=== PATIENT | male | born 1980 | race Caucasian/White ===

== ENCOUNTER 2018-10-18 08:36 | Emergency (ER) | payer BC ==
--- NOTE | 2018-10-18 08:45 | EDM.PDOC ---
ED HPI GENERAL MEDICAL PROBLEM - General Chief Complaint: ENT Problem Stated Complaint: EAR INFECTION? Time Seen by Provider: 10/18/18 08:44 Source of Information: Reports: Patient, RN, RN Notes Reviewed History Limitations: Reports: No Limitations - History of Present Illness INITIAL COMMENTS - FREE TEXT/NARRATIVE: Pt presents to ER from home by POV with c/o left ear pain that became worse last night. Pt reports about 2 weeks duration of congestion with postnasal drip and sore throat which has been improving. He denies fever, chills, cough, or any other symptoms. Denies drainage from the ear. Onset: Gradual - Related Data Allergies Allergy/AdvReac Type Severity Reaction Status Date / Time amoxicillin Allergy Cannot Verified 10/18/18 08:49 Remember Penicillins Allergy Cannot Verified 10/18/18 08:49 Remember Home Meds: Home Meds . [No Known Home Meds] 10/18/18 [History] Past Medical History - Past Health History Medical/Surgical History: Denies Medical/Surgical History Social & Family History - Family History Family Medical History: Noncontributory - Living Situation & Occupation Living situation: Reports: with Family Occupation: Employed ED ROS ENT - Review of Systems Review Of Systems: ROS reveals no pertinent complaints other than HPI. ED EXAM, ENT - Physical Exam Exam: See Below Exam Limited By: No Limitations General Appearance: Alert, WD/WN, No Apparent Distress Eye Exam: Bilateral Eye: Normal Inspection Ears: Normal External Exam, Hearing Grossly Normal, TM Bulging (Left), TM Dullness (B/L), TM Erythema (Left). No: Mastoid Tenderness, Canal Discharge, TM Perforation Nose: No Blood, Nasal Discharge (mild, thick) Mouth/Throat: Normal Gums, Normal Lips, Normal Teeth, Other (Postnasal drip). No: Pharyngeal Erythema Head: Atraumatic, Normocephalic Neck: Normal Inspection, Supple, Non-Tender, Full Range of Motion. No: Lymphadenopathy (L), Lymphadenopathy (R) Respiratory/Chest: No Respiratory Distress, Lungs Clear, Normal Breath Sounds, No Accessory Muscle Use, Chest Non-Tender Cardiovascular: Regular Rate, Rhythm Neurological: Alert, Oriented Psychiatric: Normal Mood Skin: Warm, Dry, Intact, Normal Color, No Rash Course - Vital Signs Last Recorded V/S: Last Vital Signs Temp 36.8 C 10/18/18 08:49 Pulse 75 10/18/18 08:49 Resp 18 10/18/18 08:49 BP 124/63 10/18/18 08:49 Pulse Ox 99 10/18/18 08:49 - Orders/Labs/Meds Meds: Medications Discontinued Medications Generic Name Dose Route Start Last Admin Trade Name Venuq PRN Reason Stop Dose Admin Doxycycline Hyclate 100 mg 10/18/18 08:50 Vibramycin PO 10/18/18 08:51 ONETIME ONE Lidocaine HCl 15 ml 10/18/18 08:48 Xylocaine 2% Viscous .XX 10/18/18 08:49 ONETIME ONE Departure - Departure Time of Disposition: 08:53 Disposition: Home, Self-Care 01 Condition: Good Clinical Impression: Viral upper respiratory infection Otitis media Qualifiers: Otitis media type: suppurative Chronicity: acute Laterality: left Recurrence: non-recurrent Spontaneous tympanic membrane rupture: without spontaneous rupture Qualified Code(s): H66.002 - Acute suppurative otitis media without spontaneous rupture of ear drum, left ear - Discharge Information *PRESCRIPTION DRUG MONITORING PROGRAM REVIEWED*: Not Applicable *COPY OF PRESCRIPTION DRUG MONITORING REPORT IN PATIENT MEGAN: Not Applicable Instructions: Otitis Media, Adult, [id number], Upper Respiratory Infection, Adult, [id number] Forms: ED Department Discharge Additional Instructions: Rx: Doxycycline 100mg Rx: Loratadine-D 24HR [place] gargles several times a day until sore throat resolves. Follow up in clinic if not improved in 1 week.
[2018-10-18] MEDS ORDERED: Lidocaine 2% Viscous Solution 15 ML Cup ONE (08:48)
[2018-10-18] MEDS ORDERED: Doxycycline 100 MG Cap PO ONE (08:50)
== END 2018-10-18 09:09 | disposition home or self-care (01) ==
LOC: DL.ED 08:36
DX: H66.002 Acute suppurative otitis media without spontaneous rupture of ear drum, left ear (principal); J06.9 Acute upper respiratory infection, unspecified; Z88.1 Allergy status to other antibiotic agents; Z88.0 Allergy status to penicillin
CPT/HCPCS: 99282; A9270

== ENCOUNTER 2021-03-22 14:46 | Emergency (ER) | payer BC ==
--- NOTE | 2021-03-22 15:16 | EDM.PDOC ---
ED HPI GENERAL MEDICAL PROBLEM - General Chief Complaint: Abdominal Pain Stated Complaint: STOMACH PAIN Time Seen by Provider: 03/22/21 15:16 Source of Information: Reports: Patient, RN, RN Notes Reviewed History Limitations: Reports: No Limitations - History of Present Illness INITIAL COMMENTS - FREE TEXT/NARRATIVE: Willa is a 48 y/o male who presents to the ED via personal vehicle with complaints of abdominal pain, diarrhea, and one bout of emesis. The patient reports his symptoms began five days ago and have progressively worsened in that time. He characterizes the pain as a sharp stabbing in the mid-abdomen at the level of the umbilicus. He has taken one dose of Pepto Bismol with no alleviation in symptoms. He denies recent illness, fever, shaking chills, dyspepsia, melena, hematochezia, dysuria, or hematuria. He denies tobacco, alcohol, or recreational drug use. Abdominal Pain Score (Numeric/FACES): 2 - Related Data Allergies Allergy/AdvReac Type Severity Reaction Status Date / Time amoxicillin Allergy Cannot Verified 03/22/21 15:10 Remember Penicillins Allergy Cannot Verified 03/22/21 15:10 Remember Home Meds: Home Meds . [No Known Home Meds] 10/18/18 [History] Past Medical History - Past Health History Medical/Surgical History: Denies Medical/Surgical History Social & Family History - Family History Family Medical History: No Pertinent Family History - Caffeine Use Caffeine Use: Reports: None - Living Situation & Occupation Living situation: Reports: with Family Occupation: Employed ED ROS GENERAL - Review of Systems Review Of Systems: Comprehensive ROS is negative, except as noted in HPI. ED EXAM, GI/ABD - Physical Exam Exam: See Below Exam Limited By: No Limitations General Appearance: Alert, No Apparent Distress Eyes: Bilateral: Normal Appearance, EOMI Ears: Normal External Exam, Hearing Grossly Normal Nose: Normal Inspection, Normal Mucosa, No Blood Throat/Mouth: Normal Inspection, Normal Oropharynx, Normal Voice, No Airway Compromise Head: Atraumatic, Normocephalic Neck: Normal Inspection, Supple, Non-Tender, Full Range of Motion Respiratory/Chest: No Respiratory Distress, Lungs Clear, Normal Breath Sounds, No Accessory Muscle Use, Chest Non-Tender Cardiovascular: Normal Peripheral Pulses, Regular Rate, Rhythm, No Gallop, No Murmur, No Rub GI/Abdominal Exam: Soft, No Distention, No Abnormal Bruit, No Mass, Pelvis Stable, Tender (To palpation of lower abdomen, bilaterally), Abnormal Bowel Sounds (Hyperactive bowel sounds) (Male) Exam: Deferred Rectal (Males) Exam: Deferred Back Exam: Normal Inspection, Full Range of Motion. No: CVA Tenderness (L), CVA Tenderness (R) Extremities: Normal Inspection, Normal Range of Motion, Non-Tender, No Pedal Edema, Normal Capillary Refill Neurological: Alert, Oriented, CN II-XII Intact, Normal Cognition, Normal Gait, No Motor/Sensory Deficits Psychiatric: Normal Affect, Normal Mood Skin Exam: Warm, Dry, Intact, Normal Color, No Rash. No: Cyanosis, Jaundice, Mottled, Pallor Lymphatic: No Adenopathy Course - Vital Signs Last Recorded V/S: Last Vital Signs Temp 98.5 F 03/22/21 15:10 Pulse 84 03/22/21 15:10 Resp 18 03/22/21 15:10 BP 125/79 03/22/21 15:10 Pulse Ox 96 03/22/21 15:10 - Orders/Labs/Meds Labs: Laboratory Tests 03/22/21 03/22/21 03/22/21 Range/Units 15:49 15:49 15:49 WBC 10.9 H (5.0-10.0) 10^3/uL RBC 5.41 (4.6-6.2) 10^6/uL Hgb 16.2 (14.0-18.0) g/dL Hct 46.2 (40.0-54.0) % MCV 85.4 (80-100) fL MCH 29.9 (27.0-34.0) pg MCHC 35.1 H (33.0-35.0) g/dL Plt Count 266 (150-450) 10^3/uL Neut % (Auto) 72.0 (42.2-75.2) % Lymph % (Auto) 19.7 L (20.5-50.1) % [place] % (Auto) 7.0 (2-8) % Eos % (Auto) 1.2 (1.0-3.0) % Baso % (Auto) 0.1 (0.0-1.0) % Sodium 143 (136-145) mmol/L Potassium 3.7 (3.5-5.1) mmol/L Chloride 105 (98-107) mmol/L Carbon Dioxide 29 (21-32) mmol/L Anion Gap 12.7 (7-13) mEq/L BUN 13 (7-18) mg/dL Creatinine 0.95 (0.70-1.30) mg/dL Est Cr Clr Drug Dosing 115.72 mL/min Estimated GFR (MDRD) > 60 BUN/Creatinine Ratio 13.7 (No establ ref range) Glucose 94 (70-99) mg/dL Lactic Acid 0.7 (0.4-2.0) mmol/L Calcium 8.6 (8.5-10.1) mg/dL Magnesium 2.3 (1.8-2.4) mg/dL Total Bilirubin 0.6 (0.2-1.0) mg/dL AST 21 (15-37) U/L ALT 44 (16-63) U/L Alkaline Phosphatase 57 (46-116) U/L C-Reactive Protein < 0.2 (0.0-0.9) mg/dL Total Protein 7.6 (6.4-8.2) g/dL Albumin 4.4 (3.4-5.0) g/dL Globulin 3.2 Albumin/Globulin Ratio 1.4 Amylase 48 (25-115) U/L Lipase 95 (73-393) U/L Urine Color (YELLOW) Urine Appearance (CLEAR) Urine pH (5.0-9.0) Ur Specific [place] (1.005-1.030) Urine Protein (NEGATIVE) Urine Glucose (UA) (NEGATIVE) Urine Ketones (NEGATIVE) Urine Occult Blood (NEGATIVE) Urine Nitrite (NEGATIVE) Urine Bilirubin (NEGATIVE) Urine Urobilinogen (0.2-1.0) mg/dL Ur Leukocyte Esterase (NEGATIVE) Urine Opiates Screen (NEGATIVE) Ur Oxycodone Screen (NEGATIVE) Urine Methadone Screen (NEGATIVE) Ur Barbiturates Screen (NEGATIVE) U Tricyclic Antidepress (NEGATIVE) Ur Phencyclidine Scrn (NEGATIVE) Ur Amphetamine Screen (NEGATIVE) U Methamphetamines Scrn (NEGATIVE) Urine MDMA Screen (NEGATIVE) U Benzodiazepines Scrn (NEGATIVE) Urine Cocaine Screen (NEGATIVE) U Marijuana (THC) Screen (NEGATIVE) Ethyl Alcohol < 3 (0) mg/dL SARS-CoV-2 RNA (RYAN) (NEGATIVE) 03/22/21 03/22/21 03/22/21 Range/Units 15:50 15:50 15:53 WBC (5.0-10.0) 10^3/uL RBC (4.6-6.2) 10^6/uL Hgb (14.0-18.0) g/dL Hct (40.0-54.0) % MCV (80-100) fL MCH (27.0-34.0) pg MCHC (33.0-35.0) g/dL Plt Count (150-450) 10^3/uL Neut % (Auto) (42.2-75.2) % Lymph % (Auto) (20.5-50.1) % [place] % (Auto) (2-8) % Eos % (Auto) (1.0-3.0) % Baso % (Auto) (0.0-1.0) % Sodium (136-145) mmol/L Potassium (3.5-5.1) mmol/L Chloride (98-107) mmol/L Carbon Dioxide (21-32) mmol/L Anion Gap (7-13) mEq/L BUN (7-18) mg/dL Creatinine (0.70-1.30) mg/dL Est Cr Clr Drug Dosing mL/min Estimated GFR (MDRD) BUN/Creatinine Ratio (No establ ref range) Glucose (70-99) mg/dL Lactic Acid (0.4-2.0) mmol/L Calcium (8.5-10.1) mg/dL Magnesium (1.8-2.4) mg/dL Total Bilirubin (0.2-1.0) mg/dL AST (15-37) U/L ALT (16-63) U/L Alkaline Phosphatase (46-116) U/L C-Reactive Protein (0.0-0.9) mg/dL Total Protein (6.4-8.2) g/dL Albumin (3.4-5.0) g/dL Globulin Albumin/Globulin Ratio Amylase (25-115) U/L Lipase (73-393) U/L Urine Color Yellow (YELLOW) Urine Appearance Slightly cloudy (CLEAR) Urine pH 6.0 (5.0-9.0) Ur Specific [place] >= 1.030 (1.005-1.030) Urine Protein Negative (NEGATIVE) Urine Glucose (UA) Negative (NEGATIVE) Urine Ketones Negative (NEGATIVE) Urine Occult Blood Negative (NEGATIVE) Urine Nitrite Negative (NEGATIVE) Urine Bilirubin Negative (NEGATIVE) Urine Urobilinogen 0.2 (0.2-1.0) mg/dL Ur Leukocyte Esterase Negative (NEGATIVE) Urine Opiates Screen Negative (NEGATIVE) Ur Oxycodone Screen Negative (NEGATIVE) Urine Methadone Screen Negative (NEGATIVE) Ur Barbiturates Screen Negative (NEGATIVE) U Tricyclic Antidepress Negative (NEGATIVE) Ur Phencyclidine Scrn Negative (NEGATIVE) Ur Amphetamine Screen Negative (NEGATIVE) U Methamphetamines Scrn Negative (NEGATIVE) Urine MDMA Screen Negative (NEGATIVE) U Benzodiazepines Scrn Negative (NEGATIVE) Urine Cocaine Screen Negative (NEGATIVE) U Marijuana (THC) Screen Negative (NEGATIVE) Ethyl Alcohol (0) mg/dL SARS-CoV-2 RNA (RYAN) Positive H (NEGATIVE) Meds: Medications Discontinued Medications Generic Name Dose Route Start Last Admin Trade Name Freq PRN Reason Stop Dose Admin Sodium Chloride 1,000 mls @ 999 mls/hr 03/22/21 15:38 03/22/21 15:51 Normal Saline IV 03/22/21 16:38 999 mls/hr .BOLUS ONE Administration Iopamidol 100 ml 03/22/21 16:14 03/22/21 16:58 Iopamidol 612 Mg/Ml 100 Ml Bottle IVPUSH 03/22/21 16:15 Not Given ONETIME ONE - Re-Assessments/Exams Free Text/Narrative Re-Assessment/Exam: 03/22/21 COVID test sent. Will obtain CT pending test. Findings of examination and lab work reviewed with patient. Supportive cares for gastrointestinal COVID symptoms discussed. Reviewed quarantine guidelines for patient and family members and close contacts. Red flag signs and symptoms which would warrant immediate reevaluation reviewed. Patient verbalized un derstanding and agreement with the plan of care. Departure - Departure Time of Disposition: 17:21 Disposition: Home, Self-Care 01 Condition: Fair Clinical Impression: Diarrhea due to COVID-19 Vomiting Qualifiers: Vomiting type: bilious vomiting Nausea presence: without nausea Qualified Code(s): R11.14 - Bilious vomiting - Discharge Information Instructions: COVID-19 Frequently Asked Questions, COVID-19 Vaccine Information, When You've Been Fully Vaccinated: How to Protect Yourself and Others - [facility] (10/19/2020), 10 Things You Can Do to Manage Your COVID-19 Symptoms at Home - [facility] (12/22/2020) Forms: ED Department Discharge Additional Instructions: Rx: Zofran ODT 1.) Drink small frequent sips of water to stay hydrated but avoid nausea. 2.) Eat small, snack-sized meals to avoid nausea. [place] diet, avoid spicy, greasy, high-fat foods. 3.) You may take Imodium, per bottle instructions, for persistent diarrhea. 4.) You may take ibuprofen (Advil/Motrin) 400mg every six hours, for fever and muscle aches. You may also take acetaminophen (Tylenol) 650mg every six hours, for fever and muscle aches. You may stagger these medications so you are taking a dose of either every three hours. Sepsis Event Note (ED) - Evaluation Sepsis Screening Result: No Definite Risk
[2021-03-22] MEDS ORDERED: Sodium Chloride 0.9% 1,000 ML IV ONE (15:38)
[2021-03-22 16:04] LABS: AMPHETAMINES,URINE NEGATIVE (NEGATIVE); BARBITURATES,URINE NEGATIVE (NEGATIVE); BENZODIAZEPINE,URINE NEGATIVE (NEGATIVE); MDMA (ECSTASY), URINE NEGATIVE (NEGATIVE); METHADONE,URINE NEGATIVE (NEGATIVE); METHAMPHETAMINES,URINE NEGATIVE (NEGATIVE); OPIATES,URINE NEGATIVE (NEGATIVE); OXYCODONE,URINE NEGATIVE (NEGATIVE); PHENCYCLIDINE,URINE NEGATIVE (NEGATIVE); TCA,URINE NEGATIVE (NEGATIVE)
[2021-03-22 16:15] LABS: ANION GAP 12.7 mEq/L (7-13); CHLORIDE,CL 105 mmol/L (98-107); SODIUM,NA 143 mmol/L (136-145)
[2021-03-22] MEDS: Iopamidol 612 MG/ML 100 ML Bottle IVPUSH ONE ×2 (16:21→16:58)
== END 2021-03-22 17:30 | disposition home or self-care (01) ==
LOC: DL.ED 14:46
DX: U07.1 COVID-19 (principal); R11.14 Bilious vomiting; R19.7 Diarrhea, unspecified; Z88.0 Allergy status to penicillin
CPT/HCPCS: 36415; 80053; 80305-QW; 80307; 81003; 82150; 83605; 83690; 83735; 85025; 86140; 99284; J7030; Q9967; U0002